=== PATIENT | male | born 2000 | race Hispanic/Latino ===

== ENCOUNTER 2021-03-15 09:00 | Emergency (ER) | payer BC, OTHER ==
[2021-03-15] MEDS ORDERED: traMADol HCl 50 MG TAB ONE (10:43)
== END 2021-03-15 10:55 | disposition home or self-care (01) ==
LOC: ERS 09:00
DX: M25.532 Pain in left wrist (principal)

== ENCOUNTER 2021-03-20 10:46 | Emergency (ER) | payer BC, OTHER | END 2021-03-20 12:50 | disposition home or self-care (01) | LOC: ERS 10:46 | DX: M25.561 Pain in right knee (principal); X50.9XXA Other and unspecified overexertion or strenuous movements or postures, initial encounter; Y92.89 Other specified places as the place of occurrence of the external cause; Y99.0 Civilian activity done for income or pay ==